=== PATIENT | male | born 1960 | race American Indian/Alaskan Native ===

== ENCOUNTER 2017-01-07 08:39 | Emergency (ER) | payer MEDICARE ==
[2017-01-07 09:16] VITALS: BP 98/69
[2017-01-07 09:43] LABS: Basophils % (Auto) 0.6 % (0.0-1.8); Eosinophils % (Auto) 3.4 % (0.0-4.3); Hematocrit 39.2 % (35.5-45.6); Mean Corpuscular HGB Conc 33 % (32-34); Mean Corpuscular Hemoglobin 32 pg (28-32); Mean Corpuscular Volume 98 fl (84-94); Platelet Count 172 K/mm3 (140-440); Red Cell Distribution Width 13.3 % (13.2-15.2); White Blood Count 2.8 K/mm3 (4.5-11.0)
[2017-01-07 09:51] LABS: Anion Gap 15 mmol/L; Blood Urea Nitrogen 16 mg/dL (9-20); Calcium 9.1 mg/dL (8.4-10.2); Carbon Dioxide 27 mmol/L (22-30); Chloride 103.6 mmol/L (98-107); Glucose 60 mg/dL (75-100); Potassium 4.4 mmol/L (3.6-5.0); Sodium 141 mmol/L (137-145)
--- NOTE | 2017-01-07 10:25 | XRay Report ---
CHEST 2 VIEWS INDICATION: Shortness of breath. COMPARISON: None similar at this institution. FINDINGS: PA and lateral chest radiographs demonstrate normal cardiomediastinal silhouette. Clear lungs. Intact bones. CONCLUSION: No acute disease in the chest. Thank you for the opportunity to participate in this patient's care.
--- NOTE | 2017-01-08 00:55 | ED Elopement Review ---
ED Pt Elopement review - Results review Lab results: Laboratory Tests 01/07/17 01/07/17 09:21 09:21 WBC 2.8 L RBC 4.00 Hgb 13.0 Hct 39.2 MCV 98 H MCH 32 MCHC 33 RDW 13.3 Plt Count 172 Lymph % (Auto) 41.7 H [place] % (Auto) 14.9 H Eos % (Auto) 3.4 Baso % (Auto) 0.6 Lymph # 1.2 Sequ[place]ah # 0.4 Eos # 0.1 Baso # 0.0 Seg Neutrophils % 39.4 L Seg Neutrophils # 1.1 L Sodium 141 Potassium 4.4 Chloride 103.6 Carbon Dioxide 27 Anion Gap 15 BUN 16 Creatinine 1.0 Estimated GFR > 60 BUN/Creatinine Ratio 16.00 Glucose 60 L Calcium 9.1 Troponin T < 0.010 - Call Back decision Pt Call Back Decision: Pt to F/U with PMD
== END 2017-01-07 11:25 | disposition left against medical advice (07) ==
LOC: ED 08:39
DX: R51 Headache (principal); Z53.21 Procedure and treatment not carried out due to patient leaving prior to being seen by health care provider
CPT/HCPCS: 36415; 71020; 80048; 84484; 85025; 93005; 93010